=== PATIENT | female | born 1950 | race Caucasian/White ===

== ENCOUNTER 2020-04-01 21:06 | Emergency (ER) | payer MEDICARE, MEDICAID ==
[~2020-04-01] VITALS: Ht 149.9 cm; Wt 50.0 kg
[2020-04-01] MEDS ORDERED: SIMV-261 PO (21:37)
[2020-04-01] MEDS ORDERED: SLOMG PO (21:37)
[2020-04-01] MEDS ORDERED: magnesium PO (21:37)
[2020-04-01] MEDS ORDERED: PROP40TA7 PO (21:37)
[2020-04-01] MEDS ORDERED: VITAMIN B IM (21:37)
[2020-04-01] MEDS ORDERED: CHOL400T56 PO (21:37)
[2020-04-01] MEDS ORDERED: LORA-1000 PO (21:37)
[2020-04-01] MEDS ORDERED: LISI-662 PO (21:37)
[2020-04-01] MEDS ORDERED: INSLAN SQ (21:37)
[2020-04-01] MEDS ORDERED: THYR30 (22:31)
[2020-04-01 23:48] LABS: BASOPHILS % (AUTO) 0.6 % (0.0-2.0); EOSINOPHILS % (AUTO) 9.5 % (1.0-6.0); HEMATOCRIT 28.9 % (36-46); HEMOGLOBIN 9.8 g/dL (12.0-16.0); LYMPHOCYTES # (AUTO) 1.3 K/uL (1.0-4.8); MEAN CORPUSCULAR HEMOGLOBIN 30.6 pg (26.0-34.0); MEAN CORPUSCULAR HGB CONC 33.9 G/dL (31.0-37.0); MEAN CORPUSCULAR VOLUME 90 fL (80-100); MONOCYTES # (AUTO) 0.3 K/uL (0.1-1.0); NEUTROPHILS # (AUTO) 3.1 K/uL (1.8-7.7); NEUTROPHILS % (AUTO) 59.9 % (40.0-70.0); PLATELET COUNT (AUTO) 109 K/uL (150-450); RED CELL DISTRIBUTION WIDTH 16.5 % (11.5-14.5)
[2020-04-01 23:58] LABS: ANION GAP 11 mmol/L (8-16); CALCIUM, TOTAL 9.4 mg/dL (8.8-10.5); CARBON DIOXIDE 25 mmol/L (22-29); CHLORIDE 101 mmol/L (98-107); CREATININE 0.73 mg/dL (0.60-1.30); GLOMERULAR FILTR. RATE CALC > 60 mL/min (>60); GLUCOSE,RANDOM 298 mg/dL (70-110); POTASSIUM 4.7 mmol/L (3.5-5.1); SODIUM SERUM 137 mmol/L (136-145); UREA NITROGEN, BLOOD 18 mg/dL (7-18)
[2020-04-02] VITALS: BP 134/54
[2020-04-02 00:03] LABS: INR 1.1 (0.9-1.1); PROTHROMBIN TIME 11.1 SEC (9.4-11.6)
[2020-04-02 00:06] LABS: ALANINE AMINOTRANSFERASE 39 U/L (12-78); ALBUMIN 3.4 g/dL (3.4-5.0); ALKALINE PHOSPHATASE 152 U/L (46-116); ASPARTATE AMINOTRANSFERASE 33 U/L (15-37); BILIRUBIN,TOTAL 0.6 mg/dL (0.1-1.0); TOTAL PROTEIN, SERUM 7.9 g/dL (6.4-8.2)
== END 2020-04-02 01:00 | disposition home or self-care (01) ==
LOC: EMS 21:09
DX: K62.5 Hemorrhage of anus and rectum (principal); F41.9 Anxiety disorder, unspecified; E11.9 Type 2 diabetes mellitus without complications; E78.00 Pure hypercholesterolemia, unspecified; I10 Essential (primary) hypertension; Z88.1 Allergy status to other antibiotic agents; Z88.5 Allergy status to narcotic agent; Z88.6 Allergy status to analgesic agent; Z88.8 Allergy status to other drugs, medicaments and biological substances; Z79.84 Long term (current) use of oral hypoglycemic drugs
CPT/HCPCS: 82271; 86850; 86900; 86901